=== PATIENT | male | born 1975 | race African-American/Black ===

== ENCOUNTER → 2019-12-10 | Outpatient (CLI) | payer OTHER ==
[~2019-12-10] MED LIST: MULTI VITAMIN1 EACH PO; VITAMIN D310 MC1 PO
== END ==
LOC: LAB 08:56
PROVIDERS: ATTEND Surgery
DX: Z01.812 Encounter for preprocedural laboratory examination (principal); Z20.828 Contact with and (suspected) exposure to other viral communicable diseases

== ENCOUNTER 2019-12-13 11:24 | Day surgery (SDC) | payer OTHER ==
[~2019-12-13] VITALS: Ht 182.9 cm; Wt 110.2 kg
--- NOTE | 2019-12-13 12:52 | H ---
Formerly [facility] [place] [address] HISTORY AND PHYSICAL Name: INNA COLEMAN Room #: 150-8 [facility]..#: [id number] Admission: 12/13/19 Attend Phys: Mau Moeller MD Discharge: Date of : 77 Report #: [id number] THIS REPORT FOR: cc: Raul Fernandez,Raul De Los Santos,Mau Ko MD ~ CC: Raul Denis DATE OF SERVICE: 12/12/2019 SURGERY ADMISSION HISTORY AND PHYSICAL PATIENT OF: Dr. Raul Fernandez. DATE OF ADMISSION AND SURGERY: 12/13/2019. CHIEF COMPLAINT: Right groin pain. HISTORY OF PRESENT ILLNESS: The patient is a 44-year-old -[place] male who over the last 2-3 years has had pain come and go in the right groin and hip area. He denied a bulge. No changes in bowel or bladder habits. No previous history of any hernias or hernia surgery. He saw his primary care physician, Dr. Raul Fernandez about this several times. On his most recent visit, Dr. Fernandez did find a right inguinal hernia and recommended surgical consultation. PAST MEDICAL HISTORY: Discoid lupus erythematosus, exercise-induced asthma, hypogonadism, repair of a ruptured Achilles tendon bilaterally in 2003 and 2004, right shoulder surgery in 2016. MEDICATIONS: Multivitamin, vitamin D3. ALLERGIES: HYDROCODONE CAUSES HIVES, BUT THE PATIENT HAS TAKEN OXYCODONE IN THE PAST AND NOT HAD ANY ADVERSE REACTION. FAMILY HISTORY: Noncontributory. SOCIAL HISTORY: . Drinks alcohol occasionally, does not smoke. He is employed as a warehouse associate. REVIEW OF SYSTEMS: Pertinent positives as above. Full review of systems as per the electronic medical record is reviewed by myself. PHYSICAL EXAMINATION: GENERAL: Well-developed, well-nourished -[place] male in [facility] [address] [place] [address] HISTORY AND PHYSICAL Name: INNA COLEMAN Room #: 150-8 [facility].#: [id number] Admission: 12/13/19 Attend Phys: Mau Moeller MD Discharge: Date of : 77 Report #: [id number] distress. VITAL SIGNS: Stable. He is afebrile. Height is 72 inches, weight is 245 pounds. HEENT: Unremarkable. LUNGS: Clear to auscultation bilaterally. Normal excursion. CARDIOVASCULAR: Regular rate and rhythm. No murmurs, S3 or S4. Normal PMI. ABDOMEN: Soft, flat and nontender. No palpable masses, no organomegaly, no abdominal wall hernias. GENITOURINARY: Normal scrotum, phallus and testes. There is a small partially reducible right inguinal hernia. EXTREMITIES: No clubbing, cyanosis or edema. There is bilateral Achilles incision scar as well as a right shoulder incision scar. NEUROLOGIC: Intact with a clear mental status. No focal motor or sensory deficits. IMPRESSION: A 44-year-old -[place] male with a right inguinal hernia. I fully discussed with the patient the diagnosis, prognosis, and treatment options and I have carefully and thoroughly discussed with the patient that hernia surgery may relieve all, some, or none of his pain and symptoms. He states he understands and agrees to proposed surgery. <ELECTRONICALLY SIGNED> By: Mau Moeller MD 12/13/19 1252 [id number] 1301 Mau Moeller MD /nt
[2019-12-13 13:00] VITALS: BP 134/86
[2019-12-13] MEDS ORDERED: PERCOCET 5-3251 EACH PO (13:00)
[2019-12-13 14:32] VITALS: BP 134/86
--- NOTE | 2019-12-13 15:47 | O ---
[address] [place] [address] OPERATIVE REPORT Name: INNA COLEMAN Room #: DEP [facility] M.R.#: [id number] Admission: 12/13/19 Attend Phys: Mau Moeller MD Discharge: 12/13/19 Date of : 77 Report #: [id number] THIS REPORT FOR: cc: Raul Fernandez,Raul De Los Santos,Mau Ko MD ~ CC: Raul Denis DATE OF SERVICE: 12/13/[address] Raul Fernandez. PREOPERATIVE DIAGNOSIS: Right inguinal hernia. POSTOPERATIVE DIAGNOSIS: Right inguinal hernia. PROCEDURE: Right inguinal hernia repair with Prolene hernia system mesh. SURGEON: Mau Moeller MD ANESTHESIA: Local IV sedation. DESCRIPTION OF PROCEDURE: The patient was brought to the operating room and placed on operative table in the supine position. Sequential compression devices were in place for DVT prophylaxis. There was no indication for preoperative antibiotics. The patient underwent IV sedation and the right inguinal area was prepped and draped in a sterile fashion. Skin and subcutaneous tissue were then infiltrated with 0.5% Marcaine and 1% Xylocaine with epinephrine. A right inguinal skin incision was then performed using #10 scalpel blade. Hemostasis obtained using electrocautery as well as clamps and 2-0 chromic ties. Dissection was carried down through subcutaneous tissue, the external oblique fascia, which was then incised with a knife and opened with the Metzenbaum scissors. The cord was then dissected free, elevated up and held into place with a [place] drain. Cremasteric muscle fibers were then split in the direction of their fibers using clamp and electrocautery. The cord was inspected. There was no evidence of any indirect inguinal hernia sac. The floor was inspected. There was a small to moderate sized direct inguinal hernia defect. This hernia sac was dissected free and incised just a level above the level of the floor and the hernia sac was then reduced into the preperitoneal space. The extended Prolene hernia system mesh was then inserted through the floor and then underlay patch was then deployed in the preperitoneal space. Connector was left in the floor and the floor was then tightened around the connector using a running 2-0 Prolene 2-layer Shouldice repair. The overlay patch was then deployed into the inguinal canal and the mesh was secured at the [address] [address] OPERATIVE REPORT Name: INNA COLEMAN Santi [id number] Admission: 12/13/19 Attend Phys: Mau Moeller MD Discharge: 12/13/19 Date of : 77 Report #: [id number] pubic tubercle using the same running 2-0 Prolene suture. The mesh was then secured superiorly at the connector using simple interrupted 2-0 Vicryl suture. The mesh was split and wrapped around the cord, secured to the inguinal ligament with simple interrupted 2-0 Vicryl suture. The cord was then returned to the canal intact. The external oblique fascia was then closed using running 2-0 Vicryl suture. Aleta's fascia was then reapproximated using 3 simple interrupted 2-0 chromic sutures and the skin then closed with a running 4-0 subcuticular Vicryl stitch. Wound was then dressed with Mastisol, 1/2-inch Steri-Strips cut in half, Telfa, 4 x 4 gauze, sponge and tape. The patient was then awakened from the IV sedation, taken to the recovery room in good condition. Estimated blood loss was approximately 10 mL and the patient tolerated the procedure well. All sponge, lap and instrument counts correct x 2. <ELECTRONICALLY SIGNED> By: Mau Moeller MD 12/13/19 1547 [id number] 1445 Mau Moeller MD /nt
== END 2019-12-13 15:15 | disposition home or self-care (01) ==
LOC: OR 11:24 → TBA 11:34 → OR 15:15
PROVIDERS: ATTEND Surgery
DX: K40.90 Unilateral inguinal hernia, without obstruction or gangrene, not specified as recurrent (principal); E23.0 Hypopituitarism; Z79.899 Other long term (current) drug therapy; Z88.8 Allergy status to other drugs, medicaments and biological substances; Z98.890 Other specified postprocedural states; Z72.89 Other problems related to lifestyle
CPT/HCPCS: 50010; 50101; 50386; 50417; 54111; 56524; 56525; 56526; 56528; 62110; 62850; 70005